=== PATIENT | female | born 1985 | race African-American/Black ===

== ENCOUNTER 2016-05-15 08:16 | Emergency (ER) | payer OTHER ==
[~2016-05-15] VITALS: Ht 165.1 cm; Wt 54.4 kg
[~2016-05-15 08:16] MED LIST: ALBUTEROL2.5 MG/31 INH; BACTRIM DS TAB1 EACH PO; BUTALB-APAP-CA1 EACH PO; CLEOCIN HCL150 MG; CLONAZEPAM 1 MG1 M1 PO; HYCET 7.5 MG-3473 ML PO; HYDROCHLOROTH12.5 M1 PO; IBUPROFEN 600600 M1; IBUPROFEN 600600 M1 PO; IMITREX 25 MG T25 M1; INDERAL 20 MG T20 M1; INDERAL LA60 MG PO; MACROBID 100 M100 M1 PO; NORCO 5-325 TA1 EACH PO; PENICILLIN V P500 MG PO; PREDNISONE50 MG PO; SEROQUEL 25 MG25 M1 PO; SEROQUEL 25 MG25 M2 PO; SEROQUEL200 MG PO; TRILEPTAL 300300 MG PO; TRILEPTAL150 MG PO; TYLENOL EX-STR500 M2 PO; ULTRAM 50MG TAB50 MG PO; VALIUM5 MG PO; XANAX 0.5 MG0.5 M1 PO; ZANTAC 150MG T150 MG PO; ZESTRIL20 MG PO; ZOFRAN ODT4 MG PO; ZOFRAN4 MG PO
[2016-05-15 08:54] LABS: URINE BILIRUBIN NEGATIVE (Negative); URINE BLOOD TRACE (Negative); URINE COLOR YELLOW; URINE GLUCOSE-RANDOM* NEGATIVE (Negative); URINE KETONES NEGATIVE (Negative); URINE LEUKOCYTES-REFLEX NEGATIVE (Negative); URINE PROTEIN (DIPSTICK) NEGATIVE (Negative); URINE SPECIFIC GRAVITY 1.015 (1.003-1.035); URINE UROBILINOGEN 0.2 E.U./dl (0.2-1.0)
[2016-05-15] MEDS ORDERED: TESSALON PERLE100 MG PO (09:28)
[2016-05-15] MEDS ORDERED: ACCUNEB SO1.25 MG/1 INH (09:28)
[2016-05-15] MEDS ORDERED: PANTOPRAZOLE SO40 M1 PO (10:01)
[2016-05-15 10:11] VITALS: BP 124/81
== END 2016-05-15 10:12 | disposition home or self-care (01) ==
LOC: ER 08:16
PROVIDERS: Emergency Medicine
DX: J20.8 Acute bronchitis due to other specified organisms (principal); F31.9 Bipolar disorder, unspecified; I10 Essential (primary) hypertension; Z98.890 Other specified postprocedural states; Z88.6 Allergy status to analgesic agent; F17.210 Nicotine dependence, cigarettes, uncomplicated

== ENCOUNTER 2017-01-23 18:03 | Emergency (ER) | payer OTHER ==
[~2017-01-23] VITALS: Ht 162.6 cm; Wt 52.2 kg
[~2017-01-23 18:03] MED LIST changes: +ACCUNEB SO1.25 MG/1 INH; +PANTOPRAZOLE SO40 M1 PO; +TESSALON PERLE100 MG PO
[2017-01-23] MEDS ORDERED: KLONOPIN1 MG PO (18:55)
[2017-01-23] MEDS ORDERED: HYDROCODONE-AP1 EAC6 PO (18:55)
[2017-01-23] MEDS ORDERED: ALLEGRA ALLERG180 MG PO (19:48)
[2017-01-23] MEDS ORDERED: BUTALB-APAP-CA1 EACH PO (19:48)
[2017-01-23 20:17] VITALS: BP 127/72
== END 2017-01-23 20:18 | disposition home or self-care (01) ==
LOC: ER 18:03
DX: G44.209 Tension-type headache, unspecified, not intractable (principal); J30.9 Allergic rhinitis, unspecified; F31.9 Bipolar disorder, unspecified; I10 Essential (primary) hypertension; Q61.3 Polycystic kidney, unspecified; F17.210 Nicotine dependence, cigarettes, uncomplicated; Z88.5 Allergy status to narcotic agent

== ENCOUNTER 2019-02-11 09:31 | Emergency (ER) | payer OTHER ==
[~2019-02-11] VITALS: Ht 165.1 cm; Wt 54.4 kg
[~2019-02-11 09:31] MED LIST changes: +ALLEGRA ALLERG180 MG PO; +HYDROCODONE-AP1 EAC6 PO; +KLONOPIN1 MG PO
[2019-02-11 09:32] VITALS: BP 159/108
[2019-02-11] MEDS ORDERED: PENICILLIN VK500 M1 PO (10:25)
[2019-02-11] MEDS ORDERED: ULTRAM 50MG TAB50 MG PO (10:25)
== END 2019-02-11 10:45 | disposition home or self-care (01) ==
LOC: ER 09:31
DX: K08.89 Other specified disorders of teeth and supporting structures (principal); I10 Essential (primary) hypertension; F31.9 Bipolar disorder, unspecified; G43.909 Migraine, unspecified, not intractable, without status migrainosus; F17.210 Nicotine dependence, cigarettes, uncomplicated; Z88.5 Allergy status to narcotic agent

== ENCOUNTER 2019-09-23 18:21 | Emergency (ER) | payer OTHER ==
[~2019-09-23] VITALS: Ht 162.6 cm; Wt 52.6 kg
[~2019-09-23 18:21] MED LIST changes: +PENICILLIN VK500 M1 PO
[2019-09-23 18:42] VITALS: BP 136/81
[2019-09-23] MEDS ORDERED: AMOXICILLIN 50500 M1 PO (18:52)
[2019-09-23] MEDS ORDERED: TRAMADOL 50 MG50 MG PO (18:52)
== END 2019-09-23 19:04 | disposition home or self-care (01) ==
LOC: ER 18:21
DX: K02.9 Dental caries, unspecified (principal); G43.909 Migraine, unspecified, not intractable, without status migrainosus; I10 Essential (primary) hypertension; G89.29 Other chronic pain; F31.9 Bipolar disorder, unspecified; F17.210 Nicotine dependence, cigarettes, uncomplicated; Z88.6 Allergy status to analgesic agent